=== PATIENT | female | born 1995 | race Caucasian/White ===

== ENCOUNTER 2018-01-13 16:06 | Emergency (ER) | payer OTHER ==
[~2018-01-13] VITALS: Ht 165.1 cm; Wt 90.7 kg
[~2018-01-13 16:06] MED LIST: AMOXICILLIN 50500 M1 PO; ANTIVERT25 MG PO; BACTRIM DS TAB1 EACH PO; ERYTHROMYCIN E3.5 G1 OPHTHALMIC; EXCEDRIN CAPLE1 EACH PO; IBUPROFEN 800800 M1 PO; IBUPROFEN 800800 MG PO; MACROBID 100 M100 M1 PO; MIRALAX17 GM PO; NOHOMEMEDICATIONS; ONDANSETRON HCL4 M2 PO; PAXIL10 MG; ROBAXIN 750 MG750 M1 PO; TRAMADOL 50 MG50 MG PO; ULTRAM50 MG PO; ZOFRAN ODT4 MG PO
[2018-01-13] MEDS ORDERED: MEDROLDOSEPACK PO (16:24)
[2018-01-13] MEDS ORDERED: PEPCID20 MG PO (16:24)
[2018-01-13 16:51] VITALS: BP 104/64
== END 2018-01-13 16:53 | disposition home or self-care (01) ==
LOC: M.ERS 16:06
DX: L50.9 Urticaria, unspecified (principal); G43.909 Migraine, unspecified, not intractable, without status migrainosus; Z88.5 Allergy status to narcotic agent

== ENCOUNTER 2018-02-01 18:19 | Emergency (ER) | payer OTHER ==
[~2018-02-01] VITALS: Ht 160 cm; Wt 90.7 kg
[~2018-02-01 18:19] MED LIST changes: +MEDROLDOSEPACK PO; +PEPCID20 MG PO
[2018-02-01] MEDS ORDERED: CLARITIN10 MG PO (18:52)
[2018-02-01 19:08] VITALS: BP 113/68
== END 2018-02-01 19:08 | disposition home or self-care (01) ==
LOC: M.ERS 18:19
DX: L23.9 Allergic contact dermatitis, unspecified cause (principal); M25.532 Pain in left wrist; G43.909 Migraine, unspecified, not intractable, without status migrainosus; Z88.5 Allergy status to narcotic agent

== ENCOUNTER 2018-02-19 19:00 | Emergency (ER) | payer OTHER ==
[~2018-02-19] VITALS: Ht 160 cm; Wt 90.7 kg
[~2018-02-19 19:00] MED LIST changes: +CLARITIN10 MG PO
[2018-02-19] MEDS ORDERED: ZYRTEC10 M5 PO (19:09)
[2018-02-19 19:19] LABS: URINE BILIRUBIN NEGATIVE (Negative); URINE BLOOD NEGATIVE (Negative); URINE CLARITY CLEAR; URINE COLOR YELLOW; URINE GLUCOSE-RANDOM NEGATIVE (Negative); URINE KETONES NEGATIVE (Negative); URINE LEUKOCYTES-REFLEX NEGATIVE (Negative); URINE NITRITE-REFLEX NEGATIVE (Negative); URINE PROTEIN NEGATIVE (Negative); URINE SPECIFIC GRAVITY >= 1.030 (1.005-1.030); URINE UROBILINOGEN 0.2 E.U./dl (0.2-1.0)
[2018-02-19 19:23] LABS: BACTERIA-REFLEX None Seen /HPF (None Seen); CASTS None Seen /LPF (None Seen); CRYSTALS None Seen /LPF (None Seen); SQUAMOUS 0-3 Few /LPF (0-3); URINE RBC None Seen /HPF (0-2); URINE WBC-REFLEX None Seen /HPF (0-5)
[2018-02-19 19:57] LABS: ABSOLUTE EOSINOPHILS 0.1 thou/uL (0.0-0.7); ABSOLUTE LYMPHOCYTES 2.6 thou/uL (0.8-5.3); ABSOLUTE MONOCYTES 0.4 thou/uL (0.0-1.2); ABSOLUTE NEUTROPHILS 5.5 thou/uL (1.6-8.1); BASOPHILS 0.1 %; EOSINOPHILS 1.2 %; HEMOGLOBIN 14.5 gm/dL (12.0-15.0); MCHC 33.7 g/dL (28.0-37.0); MCV 86.3 fL (80.0-100.0); MONOCYTES 4.7 %; MPV 7.2 fl. (7.2-11.1); NUCLEATED RBCS 0 /100WBC; PLATELET COUNT* 408 thou/uL (150-400); RBC 4.98 mil/uL (4.20-5.00); RDW-CV 11.9 % (10.5-14.5); WBC 8.6 thou/uL (4.0-11.0)
[2018-02-19 20:05] LABS: CALCIUM 8.7 mg/dL (8.5-10.1); CREATININE 0.8 mg/dL (0.6-1.3); POTASSIUM 3.6 mmol/L (3.5-5.1); PROTIME 10.3 Seconds (9.20-11.50)
[2018-02-19 20:09] LABS: ALBUMIN 3.6 g/dL (3.4-5.0); TOTAL BILIRUBIN 0.6 mg/dL (<0.1-1.0); TOTAL PROTEIN 7.1 g/dL (6.4-8.2)
[2018-02-19] MEDS ORDERED: PEPCID20 MG PO (21:06)
[2018-02-19] MEDS ORDERED: VOLTAREN GEL 1100 G2 TOP (21:06)
[2018-02-19] MEDS ORDERED: PREDNISONE 10 M10 MG PO (21:06)
[2018-02-19] MEDS ORDERED: CYCLOBENZAPRINE5 MG PO (21:06)
[2018-02-19 21:28] VITALS: BP 106/57
== END 2018-02-19 21:29 | disposition home or self-care (01) ==
LOC: M.ERS 19:00
PROVIDERS: Physician Assistant
DX: M54.5 Low back pain (principal); R10.30 Lower abdominal pain, unspecified; L50.9 Urticaria, unspecified; G43.909 Migraine, unspecified, not intractable, without status migrainosus; E66.9 Obesity, unspecified; Z68.35 Body mass index [BMI] 35.0-35.9, adult; Z88.5 Allergy status to narcotic agent

== ENCOUNTER 2018-03-17 19:49 | Emergency (ER) | payer OTHER ==
[~2018-03-17] VITALS: Ht 160 cm; Wt 90.7 kg
[~2018-03-17 19:49] MED LIST changes: +CYCLOBENZAPRINE5 MG PO; +PREDNISONE 10 M10 MG PO; +VOLTAREN GEL 1100 G2 TOP; +ZYRTEC10 M5 PO
[2018-03-17] MEDS ORDERED: HYDROXYZINE HCL25 M1 PO (20:40)
[2018-03-17] MEDS ORDERED: MEDROLDOSEPACK PO (20:40)
[2018-03-17] MEDS ORDERED: KEFLEX500 M1 PO (20:40)
[2018-03-17 20:49] VITALS: BP 133/79
== END 2018-03-17 20:50 | disposition home or self-care (01) ==
LOC: M.ERS 19:49
DX: L50.9 Urticaria, unspecified (principal); J02.9 Acute pharyngitis, unspecified; G43.909 Migraine, unspecified, not intractable, without status migrainosus; E66.9 Obesity, unspecified; Z88.5 Allergy status to narcotic agent

== ENCOUNTER 2018-03-29 16:05 | Emergency (ER) | payer OTHER ==
[~2018-03-29] VITALS: Ht 160 cm; Wt 90.7 kg
[~2018-03-29 16:05] MED LIST changes: +HYDROXYZINE HCL25 M1 PO; +KEFLEX500 M1 PO
[2018-03-29] MEDS ORDERED: ZYRTEC10 M5 PO (16:12)
[2018-03-29 16:29] LABS: URINE BILIRUBIN NEGATIVE (Negative); URINE BLOOD NEGATIVE (Negative); URINE CLARITY CLEAR; URINE COLOR YELLOW; URINE GLUCOSE-RANDOM NEGATIVE (Negative); URINE KETONES NEGATIVE (Negative); URINE LEUKOCYTES-REFLEX NEGATIVE (Negative); URINE NITRITE-REFLEX NEGATIVE (Negative); URINE PROTEIN NEGATIVE (Negative); URINE SPECIFIC GRAVITY >= 1.030 (1.005-1.030); URINE UROBILINOGEN 0.2 E.U./dl (0.2-1.0)
[2018-03-29 16:37] LABS: ABSOLUTE BASOPHILS 0.1 thou/uL (0.0-0.2); ABSOLUTE EOSINOPHILS 0.1 thou/uL (0.0-0.7); ABSOLUTE LYMPHOCYTES 2.4 thou/uL (0.8-5.3); ABSOLUTE MONOCYTES 0.4 thou/uL (0.0-1.2); ABSOLUTE NEUTROPHILS 9.9 thou/uL (1.6-8.1); BASOPHILS 0.6 %; EOSINOPHILS 0.5 %; HEMOGLOBIN 14.7 gm/dL (12.0-15.0); MCH 28.9 pg (26.0-34.0); MCHC 33.3 g/dL (28.0-37.0); MCV 86.6 fL (80.0-100.0); MONOCYTES 3.4 %; MPV 7.3 fl. (7.2-11.1); NUCLEATED RBCS 0 /100WBC; PLATELET COUNT* 443 thou/uL (150-400); POLYS 76.5 %; RBC 5.08 mil/uL (4.20-5.00); RDW-CV 12.1 % (10.5-14.5); WBC 12.9 thou/uL (4.0-11.0)
[2018-03-29 16:46] LABS: CALCIUM 9.1 mg/dL (8.5-10.1); CREATININE 0.8 mg/dL (0.6-1.3); POTASSIUM 3.9 mmol/L (3.5-5.1)
[2018-03-29 16:51] LABS: ALBUMIN 3.8 g/dL (3.4-5.0); TOTAL BILIRUBIN 0.6 mg/dL (<0.1-1.0); TOTAL PROTEIN 7.5 g/dL (6.4-8.2)
[2018-03-29 17:22] LABS: APTT 29.9 Seconds (25.0-31.3)
[2018-03-29] MEDS ORDERED: INDOMETHACIN 2525 MG PO (18:50)
[2018-03-29 19:00] VITALS: BP 112/57
== END 2018-03-29 19:08 | disposition home or self-care (01) ==
LOC: M.ERS 16:05
PROVIDERS: Nurse Practitioner Family
DX: I31.9 Disease of pericardium, unspecified (principal); G43.909 Migraine, unspecified, not intractable, without status migrainosus; E66.9 Obesity, unspecified; Z68.35 Body mass index [BMI] 35.0-35.9, adult; Z88.5 Allergy status to narcotic agent

== ENCOUNTER 2018-03-29 23:54 | Emergency (ER) | payer OTHER ==
[~2018-03-29] VITALS: Ht 160 cm; Wt 90.7 kg
[~2018-03-29 23:54] MED LIST changes: +INDOMETHACIN 2525 MG PO
[2018-03-30 01:24] VITALS: BP 109/52
--- NOTE | 2018-03-30 10:02 | EKG ---
[place] [address] ELECTROCARDIOGRAM REPORT Name: MELISSA NGO Room: [facility]#: [id number] Admission: 03/29/18 Attend Phys: Discharge: 03/30/18 Date of : [birth year] Report #: [id number] THIS REPORT FOR: //name// [facility] ED Test Date: 2018-03-29 Test Time: 16:10:52 Pat Name: MELISSA NGO Department: Room: Gender: F [employer] Dispatcher: Abdoul MIGUEL : 1995 Requested By: Loren Brand Order Number: [id number] MD: Brendan Elizalde Measurements Intervals [place] Rate: 106 P: 52 AR: 150 QRS: 13 QRSD: 75 T: 17 QT: 322 QTc: 428 Interpretive Statements Sinus tachycardia Compared to ECG 01/23/2015 23:04:18 Sinus rhythm no longer present Electronically Signed On 03-30-2018 10:02:38 CDT by Brenadn Elizalde [email or web address] <ELECTRONICALLY SIGNED> By: Brendan Elizalde MD, [facility] 03/30/18 1002 1610 09 Brendan Elizalde MD, FACC /EPI
[2018-03-31] MEDS ORDERED: HYDROCODON-ACE1 EAC7 PO (05:02)
[2018-03-31] MEDS ORDERED: PHENERGAN 25 MG25 M1 PO (05:02)
== END 2018-03-30 01:26 | disposition home or self-care (01) ==
LOC: M.ERS 23:54
DX: J02.9 Acute pharyngitis, unspecified (principal); G43.909 Migraine, unspecified, not intractable, without status migrainosus; E66.9 Obesity, unspecified; Z68.35 Body mass index [BMI] 35.0-35.9, adult; Z88.5 Allergy status to narcotic agent

== ENCOUNTER 2018-03-31 01:25 | Emergency (ER) | payer OTHER ==
[~2018-03-31] VITALS: Ht 160 cm; Wt 90.7 kg
[2018-03-31 02:12] LABS: ABSOLUTE BASOPHILS 0.1 thou/uL (0.0-0.2); ABSOLUTE LYMPHOCYTES 3.4 thou/uL (0.8-5.3); ABSOLUTE NEUTROPHILS 12.4 thou/uL (1.6-8.1); BASOPHILS 0.5 %; EOSINOPHILS 0.2 %; HEMATOCRIT 39.8 % (37.0-47.0); HEMOGLOBIN 13.4 gm/dL (12.0-15.0); LYMPHOCYTES 20.3 %; MCHC 33.7 g/dL (28.0-37.0); MCV 86.1 fL (80.0-100.0); MONOCYTES 5.8 %; MPV 7.4 fl. (7.2-11.1); NUCLEATED RBCS 0 /100WBC; PLATELET COUNT* 470 thou/uL (150-400); POLYS 73.2 %; RBC 4.62 mil/uL (4.20-5.00); RDW-CV 11.9 % (10.5-14.5); WBC 16.9 thou/uL (4.0-11.0)
[2018-03-31 02:19] LABS: CALCIUM 9.1 mg/dL (8.5-10.1); CREATININE 0.8 mg/dL (0.6-1.3); POTASSIUM 3.5 mmol/L (3.5-5.1)
[2018-03-31 02:23] LABS: ALBUMIN 3.4 g/dL (3.4-5.0); TOTAL BILIRUBIN 0.5 mg/dL (<0.1-1.0); TOTAL PROTEIN 6.8 g/dL (6.4-8.2)
[2018-03-31 03:41] LABS: URINE BILIRUBIN NEGATIVE (Negative); URINE BLOOD TRACE (Negative); URINE CLARITY CLEAR; URINE COLOR YELLOW; URINE GLUCOSE-RANDOM NEGATIVE (Negative); URINE KETONES NEGATIVE (Negative); URINE LEUKOCYTES-REFLEX NEGATIVE (Negative); URINE NITRITE-REFLEX NEGATIVE (Negative); URINE PROTEIN NEGATIVE (Negative); URINE SPECIFIC GRAVITY <= 1.005 (1.005-1.030); URINE UROBILINOGEN 0.2 E.U./dl (0.2-1.0)
[2018-03-31] MEDS ORDERED: HYDROCODON-ACE1 EAC7 PO (05:02)
[2018-03-31] MEDS ORDERED: PHENERGAN 25 MG25 M1 PO (05:02)
[2018-03-31 05:11] VITALS: BP 96/44
== END 2018-03-31 05:12 | disposition home or self-care (01) ==
LOC: M.ERS 01:25
PROVIDERS: Personal Emergency Response Attendant
DX: K52.9 Noninfective gastroenteritis and colitis, unspecified (principal); G43.909 Migraine, unspecified, not intractable, without status migrainosus; E66.9 Obesity, unspecified; Z88.5 Allergy status to narcotic agent

== ENCOUNTER 2018-06-09 21:03 | Emergency (ER) | payer OTHER ==
[~2018-06-09] VITALS: Ht 162.6 cm; Wt 90.7 kg
[~2018-06-09 21:03] MED LIST changes: +HYDROCODON-ACE1 EAC7 PO; +PHENERGAN 25 MG25 M1 PO
[2018-06-09] MEDS ORDERED: PEPCID20 MG (21:12)
[2018-06-09] MEDS ORDERED: AMOXICILLIN 50500 MG PO (21:19)
[2018-06-09 21:29] VITALS: BP 103/56
== END 2018-06-09 21:30 | disposition home or self-care (01) ==
LOC: M.ERS 21:03
DX: J02.9 Acute pharyngitis, unspecified (principal); G43.909 Migraine, unspecified, not intractable, without status migrainosus; E66.9 Obesity, unspecified; Z88.5 Allergy status to narcotic agent; Z68.54 Body mass index [BMI] pediatric, 95th percentile for age to less than 120% of the 95th percentile for age

== ENCOUNTER 2019-04-12 18:04 | Emergency (ER) | payer OTHER ==
[~2019-04-12] VITALS: Ht 160 cm; Wt 90.7 kg
[~2019-04-12 18:04] MED LIST changes: +AMOXICILLIN 50500 MG PO; +PEPCID20 MG
[2019-04-12 18:33] LABS: ABSOLUTE BASOPHILS 0.1 thou/uL (0.0-0.2); ABSOLUTE EOSINOPHILS 0.3 thou/uL (0.0-0.7); ABSOLUTE LYMPHOCYTES 3.1 thou/uL (0.8-5.3); ABSOLUTE MONOCYTES 0.6 thou/uL (0.0-1.2); ABSOLUTE NEUTROPHILS 4.1 thou/uL (1.6-8.1); BASOPHILS 0.9 %; EOSINOPHILS 3.7 %; HEMATOCRIT 41.6 % (37.0-47.0); HEMOGLOBIN 14.3 gm/dL (12.0-15.0); LYMPHOCYTES 38.2 %; MCHC 34.3 g/dL (28.0-37.0); MCV 84.6 fL (80.0-100.0); MONOCYTES 6.9 %; MPV 7.6 fl. (7.2-11.1); NUCLEATED RBCS 0 /100WBC; PLATELET COUNT* 429 thou/uL (150-400); POLYS 50.3 %; RBC 4.92 mil/uL (4.20-5.00); WBC 8.2 thou/uL (4.0-11.0)
[2019-04-12 18:40] LABS: CALCIUM 9.2 mg/dL (8.5-10.1); CREATININE 0.8 mg/dL (0.6-1.3); POTASSIUM 3.8 mmol/L (3.5-5.1)
[2019-04-12 18:49] LABS: ALBUMIN 3.6 g/dL (3.4-5.0); TOTAL BILIRUBIN 0.4 mg/dL (<0.1-1.0); TOTAL PROTEIN 7.2 g/dL (6.4-8.2)
[2019-04-12 19:12] LABS: URINE BILIRUBIN NEGATIVE (Negative); URINE BLOOD NEGATIVE (Negative); URINE CLARITY CLEAR; URINE COLOR YELLOW; URINE GLUCOSE-RANDOM NEGATIVE (Negative); URINE KETONES NEGATIVE (Negative); URINE LEUKOCYTES-REFLEX NEGATIVE (Negative); URINE NITRITE-REFLEX NEGATIVE (Negative); URINE PROTEIN NEGATIVE (Negative); URINE SPECIFIC GRAVITY >= 1.030 (1.005-1.030); URINE UROBILINOGEN 0.2 E.U./dl (0.2-1.0)
[2019-04-12] MEDS ORDERED: CITRATE OF MAG296 ML PO (19:52)
[2019-04-12] MEDS ORDERED: MIRALAX119 GM PO (19:52)
[2019-04-12] MEDS ORDERED: TRAMADOL 50 MG50 MG PO (19:52)
[2019-04-12 20:17] VITALS: BP 104/51
== END 2019-04-12 20:18 | disposition home or self-care (01) ==
LOC: M.ERS 18:04
PROVIDERS: Physician Assistant
DX: K59.00 Constipation, unspecified (principal); R10.11 Right upper quadrant pain; R19.7 Diarrhea, unspecified; G43.909 Migraine, unspecified, not intractable, without status migrainosus; Z88.5 Allergy status to narcotic agent